=== PATIENT | male | born 1935 | race Caucasian/White ===

== ENCOUNTER 2021-12-21 16:12 | Emergency (ER) | payer OTHER ==
[~2021-12-21] VITALS: Ht 180.3 cm; Wt 73.9 kg
[2021-12-21 16:16] VITALS: BP_SYST 139
--- NOTE | 2021-12-21 16:23 | NUR ---
Triaged pt and placed in waiting room until bed becomes available.
--- NOTE | 2021-12-21 16:25 | NUR ---
EKG performed at by Mckenzie JAMIL. Physician given copy of EKG for review.
--- NOTE | 2021-12-21 16:52 | NUR ---
PATIENT AMBULATORY TO ER C/O CHEST PAIN, PLACE IN ROOM 3 AWAITING FOR EDP FOR INITIAL ASSESSMENT.
[2021-12-21 18:37] LABS: BASOPHILS % (AUTO) 0.4 % (0.0-2.0); EOSINOPHILS % (AUTO) 0.7 % (0.0-4.0); HEMOGLOBIN 11.5 g/dL (14.0-18.0); LYMPHOCYTES # (AUTO) 0.3 K/uL (1.0-5.5); LYMPHOCYTES % (AUTO) 4.9 % (20.5-51.5); MEAN CORPUSCULAR HEMOGLOBIN 33 pg (27-31); MEAN CORPUSCULAR HGB CONC 34 % (32-36); MEAN CORPUSCULAR VOLUME 96 fL (79.0-98.0); MONOCYTES # (AUTO) 0.1 K/uL (0.0-1.0); MONOCYTES % (AUTO) 1.1 % (1.7-9.3); NEUTROPHILS # (AUTO) 5.5 K/uL (1.8-7.7); NEUTROPHILS % (AUTO) 92.9 % (40.0-70.0); PLATELET COUNT (AUTO) 167 K/uL (130-430); RED BLOOD CELL COUNT(AUTO) 3.55 MIL/uL (4.2-6.2); RED CELL DISTRIBUTION WIDTH 13.2 % (9.0-15.0); WHITE BLOOD COUNT (AUTO) 5.9 K/uL (4.8-10.8)
--- NOTE | 2021-12-21 19:15 | NUR ---
ASSUME CARE OF PT BY ROBBIN JAMIL, REPORT GIVEN BY MEGAN JAMIL, PT ON CARDAIC MONITOR, BIB FOR CP, DENIES SOB, PT DENIES ANY CP AT PRESENT TIME, PT SAY HE THINKS ITS HEARTBURN.
[2021-12-21 19:49] LABS: ANION GAP 9 (5-15); CALCIUM 9.1 mg/dL (8.4-11.0); CHLORIDE 106 mmol/L (98-107); CREATININE 1.51 mg/dL (0.55-1.30); GLUCOSE 162 mg/dL (70-99); POTASSIUM 4.4 mmol/L (3.5-5.1); SODIUM SERUM 142 mmol/L (136-145); UREA NITROGEN, BLOOD 41 mg/dL (8-21)
[2021-12-21 19:56] LABS: ALANINE AMINOTRANSFERASE 421 U/L (12-78); ALBUMIN 3.4 g/dL (3.4-4.8); ASPARTATE AMINOTRANSFERASE 272 U/L (10-37); TOTAL BILIRUBIN 1.2 mg/dL (0.0-1.0)
[2021-12-21] MEDS ORDERED: FAMO40TA7 PO (21:32)
--- NOTE | 2021-12-21 21:50 | NUR ---
Patient given written and verbal discharge instructions and verbalizes understanding. ER MD discussed with patient the results and treatment provided. Patient in stable condition. ID arm band removed. IV catheter removed intact and dressing applied, no active bleeding. Patient educated on pain management and to follow up with PMD. Pain Scale 0. Opportunity for questions provided and answered. Medication side effect fact sheet provided.
[2021-12-21 21:53] VITALS: BP_SYST 140
== END 2021-12-21 21:53 | disposition home or self-care (01) ==
LOC: SED 16:12
DX: K21.9 Gastro-esophageal reflux disease without esophagitis (principal); R74.01 Elevation of levels of liver transaminase levels; R07.9 Chest pain, unspecified; I10 Essential (primary) hypertension; E78.5 Hyperlipidemia, unspecified; Z88.2 Allergy status to sulfonamides; Z79.899 Other long term (current) drug therapy
CPT/HCPCS: 36415; 71045; 76376; 80053; 83880; 84484; 85025; 93005; 99285

== ENCOUNTER 2023-12-27 11:34 | Emergency (ER) | payer OTHER ==
[~2023-12-27] VITALS: Ht 180.3 cm; Wt 70.8 kg
[~2023-12-27 11:34] MED LIST: FAMO40TA7 PO
[2023-12-27 11:47] VITALS: BP_SYST 192; PULSE 72; RESP 18; TEMP 98.3; O2SAT 96
[2023-12-27 12:19] LABS: BASOPHILS % (AUTO) 0.8 % (0.0-2.0); EOSINOPHILS # (AUTO) 0.1 K/uL (0.0-0.4); EOSINOPHILS % (AUTO) 1.3 % (0.0-4.0); HEMATOCRIT 35.4 % (36-54); HEMOGLOBIN 12.5 g/dL (14.0-18.0); LYMPHOCYTES # (AUTO) 1.2 K/uL (1.0-5.5); LYMPHOCYTES % (AUTO) 25.2 % (20.5-51.5); MEAN CORPUSCULAR HEMOGLOBIN 34 pg (27-31); MEAN CORPUSCULAR HGB CONC 35 % (32-36); MEAN CORPUSCULAR VOLUME 96 fL (79.0-98.0); MONOCYTES # (AUTO) 0.5 K/uL (0.0-1.0); MONOCYTES % (AUTO) 10.2 % (1.7-9.3); NEUTROPHILS # (AUTO) 3.1 K/uL (1.8-7.7); NEUTROPHILS % (AUTO) 62.5 % (40.0-70.0); PLATELET COUNT (AUTO) 247 K/uL (130-430); RED BLOOD CELL COUNT(AUTO) 3.69 MIL/uL (4.2-6.2); RED CELL DISTRIBUTION WIDTH 12.8 % (9.0-15.0); WHITE BLOOD COUNT (AUTO) 4.9 K/uL (4.8-10.8)
[2023-12-27] MEDS: IBUPROFEN 600 MG TABLET PO ONE (12:25)
[2023-12-27] MEDS: HYDROcodone/ACETAMIN 5-325 MG TAB (NORCO/ VICODIN) PO ONE (12:25)
[2023-12-27 12:34] LABS: ALANINE AMINOTRANSFERASE 19 U/L (12-78); ALBUMIN 3.6 g/dL (3.4-4.8); ANION GAP 7 (5-15); ASPARTATE AMINOTRANSFERASE 22 U/L (10-37); CALCIUM 8.9 mg/dL (8.4-11.0); CARBON DIOXIDE 26 mmol/L (23-29); CHLORIDE 93 mmol/L (98-107); CREATININE 1.42 mg/dL (0.55-1.30); GLUCOSE 110 mg/dL (74-106); POTASSIUM 4.3 mmol/L (3.5-5.1); PROTHROMBIN TIME 10.7 SECS (9.5-12.5); SODIUM SERUM 126 mmol/L (136-145); TOTAL BILIRUBIN 0.6 mg/dL (0.0-1.0); TOTAL PROTEIN, SERUM 6.6 g/dL (6.4-8.3); UREA NITROGEN, BLOOD 31 mg/dL (8-21)
[2023-12-27 12:36] LABS: BILIRUBIN,DIRECT 0.1 mg/dL (0.0-0.3); CREATINE KINASE, TOTAL 111 U/L (39-308)
[2023-12-27 13:37] LABS: COVID19 ANTIGEN SOFIA FIA NEGATIVE (NEGATIVE)
[2023-12-27 13:51] VITALS: BP_SYST 192; PULSE 72; RESP 18; TEMP 98.3; O2SAT 96
[2023-12-27 13:51] LABS: INFLUENZA TYPE A Negative (NEGATIVE); INFLUENZA TYPE B NEGATIVE (NEGATIVE)
== END 2023-12-27 13:47 | disposition home or self-care (01) ==
LOC: SED 11:34
DX: R06.02 Shortness of breath (principal); Z20.822 Contact with and (suspected) exposure to COVID-19; K21.9 Gastro-esophageal reflux disease without esophagitis; I10 Essential (primary) hypertension; E78.5 Hyperlipidemia, unspecified; Z88.2 Allergy status to sulfonamides; Z88.8 Allergy status to other drugs, medicaments and biological substances; Z79.899 Other long term (current) drug therapy
CPT/HCPCS: 36415; 71045; 80048; 80076; 82550; 83605; 83880; 84484; 85025; 85610; 85730; 93005; 99285

== ENCOUNTER 2023-12-28 11:19 | Inpatient (IN) | payer OTHER ==
[~2023-12-28] VITALS: Ht 180.3 cm; Wt 72.6 kg
[2023-12-28 11:46] VITALS: BP_SYST 128; PULSE 78; RESP 18; TEMP 97.8; O2SAT 98
[2023-12-28] MEDS: ACETAMINOPHEN 500 MG TABLET PO ONE (12:41)
[2023-12-28 13:25] LABS: BASOPHILS % (AUTO) 0.3 % (0.0-2.0); EOSINOPHILS % (AUTO) 0.4 % (0.0-4.0); HEMATOCRIT 34.4 % (36-54); LYMPHOCYTES # (AUTO) 0.8 K/uL (1.0-5.5); LYMPHOCYTES % (AUTO) 9.7 % (20.5-51.5); MEAN CORPUSCULAR HEMOGLOBIN 34 pg (27-31); MEAN CORPUSCULAR HGB CONC 35 % (32-36); MEAN CORPUSCULAR VOLUME 96 fL (79.0-98.0); MONOCYTES # (AUTO) 0.6 K/uL (0.0-1.0); MONOCYTES % (AUTO) 7.2 % (1.7-9.3); NEUTROPHILS % (AUTO) 82.4 % (40.0-70.0); PLATELET COUNT (AUTO) 231 K/uL (130-430); RED CELL DISTRIBUTION WIDTH 12.6 % (9.0-15.0); WHITE BLOOD COUNT (AUTO) 8.5 K/uL (4.8-10.8)
[2023-12-28] MEDS: MORPHINE 2 MG/ML INJ. SYRINGE IVP ONE (14:19)
[2023-12-28 14:21] LABS: ANION GAP 5 (5-15); CALCIUM 8.9 mg/dL (8.4-11.0); CARBON DIOXIDE 26 mmol/L (23-29); CHLORIDE 95 mmol/L (98-107); CREATININE 1.44 mg/dL (0.55-1.30); GLUCOSE 104 mg/dL (74-106); POTASSIUM 4.2 mmol/L (3.5-5.1); SODIUM SERUM 126 mmol/L (136-145); UREA NITROGEN, BLOOD 35 mg/dL (8-21)
[2023-12-28 15:08] LABS: BILIRUBIN,URINE NEGATIVE (NEGATIVE); BLOOD, URINE NEGATIVE (NEGATIVE); CLARITY/URINE CLEAR (CLEAR); COLOR,URINE YELLOW (YELLOW); GLUCOSE,URINE NEGATIVE (NEGATIVE); KETONES,URINE TRACE (NEGATIVE); LEUKOCYTE ESTERASE ,URINE NEGATIVE (NEGATIVE); NITRITE, URINE NEGATIVE (NEGATIVE); PROTEIN URINE TRACE (NEGATIVE); UROBILINOGEN,URINE 0.2 (0.2-1.0)
[2023-12-28 16:09] LABS: BACTERIA,URINE RARE /HPF (None Seen); RBC,URINE 0-3 /HPF (0-3); WBC,URINE 0-3 /HPF (0-3)
[2023-12-28 16:11] LABS: URINE AMORPHOUS PHOSPHATES 2+ /HPF (None Seen)
[2023-12-28] MEDS ORDERED: LIDOCAINE 1%, 20 ML MDV 20 ML ONE (16:13)
[2023-12-28] MEDS: NACL 0.9% 1,000 ML IV SCH (17:41)
[2023-12-28] MEDS: ONDANSETRON HCL 4 MG/2 ML VIAL IVP PRN (20:43)
[2023-12-28] MEDS: MORPHINE 2 MG/ML INJ. SYRINGE IVP PRN (20:45)
[2023-12-28 21:59] VITALS: BP_SYST 165; PULSE 74; RESP 16; TEMP 97.3; O2SAT 96
[2023-12-28 22:27] VITALS: BP_SYST 165; PULSE 72; RESP 18; TEMP 97.8; O2SAT 96
[2023-12-28 22:45] VITALS: BP_SYST 135; PULSE 68; RESP 16; TEMP 97.5; O2SAT 97
[2023-12-28] MEDS: FUROSEMIDE 40 MG/4 ML VIAL IVP ONE (23:24)
[2023-12-29 00:15] VITALS: BP_SYST 128; PULSE 70; RESP 16; TEMP 98.3; O2SAT 96
[2023-12-29 04:32] VITALS: BP_SYST 130; PULSE 68; RESP 16; TEMP 97.5; O2SAT 96
[2023-12-29] MEDS ORDERED: TAMS0.4C96 PO (04:50)
[2023-12-29] MEDS ORDERED: FINA5TAB11 PO (04:50)
[2023-12-29] MEDS ORDERED: DOCU-156 PO (04:50)
[2023-12-29] MEDS ORDERED: LISI10TA29 PO (04:50)
[2023-12-29] MEDS ORDERED: GABA-529 PO (04:50)
[2023-12-29 09:45] VITALS: O2SAT 99
[2023-12-29 11:50] LABS: ANION GAP 3 (5-15); CALCIUM 8.4 mg/dL (8.4-11.0); CARBON DIOXIDE 29 mmol/L (23-29); CHLORIDE 101 mmol/L (98-107); CREATININE 1.37 mg/dL (0.55-1.30); GLUCOSE 102 mg/dL (74-106); POTASSIUM 4.4 mmol/L (3.5-5.1); SODIUM SERUM 133 mmol/L (136-145); UREA NITROGEN, BLOOD 27 mg/dL (8-21)
[2023-12-29 12:07] VITALS: BP_SYST 125; PULSE 65; RESP 17; TEMP 97.8; O2SAT 97
[2023-12-29] MEDS: MAGNESIUM CITRATE 300 ML ORAL SOLUTION PO ONE (13:20)
[2023-12-29] MEDS: HYDROcodone/ACETAMIN 5-325 MG TAB (NORCO/ VICODIN) PO PRN (15:26)
[2023-12-29 18:24] VITALS: BP_SYST 167; PULSE 65; RESP 14; TEMP 98.4
[2023-12-29 20:00] VITALS: BP_SYST 190; PULSE 76; RESP 20; TEMP 97.6; O2SAT 98
[2023-12-29 20:13] LABS: THYROID STIMULATING HORMONE 1.87 uIu/mL (0.36-3.74)
[2023-12-29] MEDS: cloNIDine HCL 0.2 MG TABLET PO PRN (23:55)
[2023-12-30] VITALS (8 sets, daily range): BP systolic 156–196; PULSE 59–69; RESP 12–20; TEMP 97.3–98.2; O2SAT 94–99
[2023-12-30] MEDS: PANTOPRAZOLE SODIUM 40 MG TAB PO ONE (00:12)
[2023-12-30] MEDS: AMITRIPTYLINE HCL 25 MG TABLET (ELAVIL) PO SCH (00:13)
[2023-12-30 06:07] LABS: BASOPHILS % (AUTO) 0.8 % (0.0-2.0); EOSINOPHILS # (AUTO) 0.3 K/uL (0.0-0.4); EOSINOPHILS % (AUTO) 6.2 % (0.0-4.0); HEMATOCRIT 29.7 % (36-54); HEMOGLOBIN 10.2 g/dL (14.0-18.0); LYMPHOCYTES # (AUTO) 0.8 K/uL (1.0-5.5); LYMPHOCYTES % (AUTO) 17.4 % (20.5-51.5); MEAN CORPUSCULAR HEMOGLOBIN 33 pg (27-31); MEAN CORPUSCULAR HGB CONC 35 % (32-36); MEAN CORPUSCULAR VOLUME 97 fL (79.0-98.0); MONOCYTES # (AUTO) 0.5 K/uL (0.0-1.0); MONOCYTES % (AUTO) 9.8 % (1.7-9.3); NEUTROPHILS % (AUTO) 65.8 % (40.0-70.0); PLATELET COUNT (AUTO) 188 K/uL (130-430); RED BLOOD CELL COUNT(AUTO) 3.07 MIL/uL (4.2-6.2); RED CELL DISTRIBUTION WIDTH 12.8 % (9.0-15.0); WHITE BLOOD COUNT (AUTO) 4.6 K/uL (4.8-10.8)
[2023-12-30 06:27] LABS: ANION GAP 5 (5-15); CARBON DIOXIDE 29 mmol/L (23-29); CHLORIDE 104 mmol/L (98-107); GLUCOSE 104 mg/dL (74-106); POTASSIUM 4.3 mmol/L (3.5-5.1); SODIUM SERUM 138 mmol/L (136-145)
[2023-12-30 06:28] LABS: CREATININE 1.25 mg/dL (0.55-1.30); UREA NITROGEN, BLOOD 23 mg/dL (8-21)
[2023-12-30] MEDS: amLODIPine BESYLATE 5 MG TABLET PO SCH (08:27)
[2023-12-30] MEDS: PANTOPRAZOLE SODIUM 40 MG TAB PO SCH (08:28)
[2023-12-30] MEDS: MAGNESIUM CITRATE 300 ML ORAL SOLUTION PO ONE (12:07)
[2023-12-30] MEDS: PSYLLIUM HUSK 1 PKT PACKET PO ONE (12:07)
[2023-12-30] MEDS ORDERED: SENN-22 PO (13:25)
[2023-12-30] MEDS ORDERED: PRO40 PO (13:25)
[2023-12-30] MEDS ORDERED: AMIT25TA10 PO (13:25)
[2023-12-30] MEDS ORDERED: AMLO5TAB4 PO (13:25)
[2023-12-30] MEDS ORDERED: traMADol HCL HCL 50 MG TABLET (ULTRAM) PO PRN (16:45)
[2023-12-30] MEDS: MINERAL OIL 133 ML ENEMA RC ONE (17:22)
[2023-12-30] MEDS: SENNOSIDES/DOCUSATE SODIUM 1 TAB TABLET(SENOKOT-S) PO SCH (21:01)
[2023-12-30] MEDS: PSYLLIUM HUSK 1 PKT PACKET PO SCH (21:01)
[2023-12-31 03:15] VITALS: RESP 20; TEMP 98; O2SAT 97
[2023-12-31 08:20] VITALS: BP_SYST 159; PULSE 59; RESP 16; TEMP 97; O2SAT 97
[2023-12-31 12:39] VITALS: BP_SYST 146; PULSE 60; RESP 18; TEMP 97.3; O2SAT 97
[2023-12-31 12:41] VITALS: BP_SYST 146; PULSE 60; RESP 18; TEMP 97.3; O2SAT 97
[2024-01-02 08:06] LABS: FREE PSA 0.21 ng/mL; PROSTATE SPECIFIC AG TOTAL 0.7 ng/mL (0.0-4.0)
== END 2023-12-31 13:30 | disposition home or self-care (01) | DRG 913 ==
LOC: SED 11:19 → STU 17:00 → SMU 12-30 18:15
PROVIDERS: ADMIT Specialist; ATTEND Specialist
PROC: 0HQ0XZZ Repair Scalp Skin, External Approach (ICD-10-PCS; principal; 2023-12-28)
DX: S09.8XXA Other specified injuries of head, initial encounter (principal); N17.0 Acute kidney failure with tubular necrosis; E87.1 Hypo-osmolality and hyponatremia; G91.2 (Idiopathic) normal pressure hydrocephalus; W18.39XA Other fall on same level, initial encounter; I10 Essential (primary) hypertension; K21.9 Gastro-esophageal reflux disease without esophagitis; G62.9 Polyneuropathy, unspecified; K59.00 Constipation, unspecified; Z88.2 Allergy status to sulfonamides; Z90.49 Acquired absence of other specified parts of digestive tract; Z88.8 Allergy status to other drugs, medicaments and biological substances; Z79.899 Other long term (current) drug therapy; Y93.89 Activity, other specified; Y92.89 Other specified places as the place of occurrence of the external cause; Y99.8 Other external cause status; N40.0 Benign prostatic hyperplasia without lower urinary tract symptoms
CPT/HCPCS: 36415; 70450-TC; 71045; 72100; 72125-TC; 72131; 72192-TC; 80048; 81000; 81001; 81015; 83690; 83880; 84153; 84443; 84484; 85025; 86301; 93005; 97110-GP; 97116-GP; 97530-GP; 99285; G0378; J2001; J2270; J2405; J7030